=== PATIENT | female | born 1975 | race Two or more races ===

== ENCOUNTER 2024-11-30 09:39 | Emergency (ER) | payer OTHER ==
[~2024-11-30] VITALS: Ht 162.6 cm; Wt 76.8 kg
--- NOTE | 2024-11-30 09:55 | ED.PDOC ---
History of Present Illness HPI Comments 48Y F with PMHx pituitary tumor, prediabetes, CTS, and fibromyalgia presents to ED via EMS for chief complaint weakness x4days with n/v/d and bloating. Pt also reports chest pain only when coughing. VS with EMS: BP 121/86, HR 91, SpO2 95% on RA. No other symptoms reported. 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 Family History Family History: Unknown Social History Smoker: Non-Smoker Alcohol: Denies ETOH Use Drugs: Denies Drug Use Lives In: Home Constitutional: reports: weakness; denies: chills, diaphoresis, fatigue, fever, malaise, sweats, others EENTM: denies: blurred vision, double vision, ear bleeding, ear discharge, ear drainage, ear pain, ear ringing, eye pain, eye redness, hearing loss, mouth pain, mouth swelling, nasal discharge, nose bleeding, nose congestion, nose pain, photophobia, tearing, throat pain, throat swelling, voice changes, others Respiratory: denies: cough, hemoptysis, orthopnea, SOB at rest, shortness of breath, SOB with excertion, stridor, wheezing, others Cardiovascular: denies: chest pain, dizzy spells, diaphoresis, Dyspnea on exertion, edema, irregular heart beat, left arm pain, lightheadedness, palpitations, PND, syncope, others Gastrointestinal: reports: abdomen distended, diarrhea, nausea, vomiting; denies: abdominal pain, blood streaked bowels, constipated, dysphagia, di fficulty swallowing, hematemesis, melena, poor appetite, poor fluid intake, rectal bleeding, rectal pain, others Genitourinary: denies: abnormal vagina bleeding, burning, dyspareunia, dysuria, flank pain, frequency, hematuria, incontinence, pain, , vagina discharge, urgency, others Neurological: denies: dizziness, fainting, headache, left sided numbness, left sided weakness, numbness, paresthesia, pre-existing deficit, right sided numbness, right sided weakness, seizure, speech problems, tingling, tremors, weakness, others Musculoskeletal: denies: back pain, gout, joint pain, joint swelling, muscle pain, muscle stiffness, neck pain, others Integumetry: denies: bruises, change in color, change in hair/nails, dryness, laceration, lesions, lumps, rash, wounds, others Allergic/Immunocompromised: denies: Difficulty Healing, Frequent Infections, Hives, Itching, others Hematologic/Lymphatic: denies: anemia, blood clots, easy bleeding, easy bruising, swollen glands, others Endocrine: denies: excessive hunger, excessive sweating, excessive thirst, excessive urination, flushing, intolerance to cold, intolerance to heat, unexplained weight gain, unexplained weight loss, others Psychiatric: denies: anxiety, bipolar disorder, depression, hopeless, panic disorder, schizophrenia, sleepless, suicidal, others All Other Systems: Reviewed and Negative Physical Exam General Appearance: No Apparent Distress, Normal HEENT: Normal ENT Inspection, Pharynx Normal, TMs Normal Neck: Full Range of Motion, Non-Tender, Normal, Normal Inspection Respiratory: Chest Non-Tender, Lungs Clear, No Accessory Muscle Use, No R espiratory Distress, Normal Breath Sounds Cardiovascular: No Edema, No JVD, No Murmur, No Gallop, Normal Peripheral Pulses, Regular Rate/Rhythm, Other (chest wall tender on palpation) Breast Exam: Deferred Gastrointestinal: No Organomegaly, Non Tender, No Pulsatile Mass, Normal Bowel Sounds, Soft Genitalia: Deferred Pelvic: Deferred Rectal: Deferred Extremities: No calf tenderness, Normal capillary refill, Normal inspection, Normal range of motion, Non-tender, No pedal edema Musculoskeletal : Apperance: Normal Neurologic: Alert, dinkey locomotive operator II-XII nml as Tested, No Motor Deficits, Normal Affect, Normal Mood, No Sensory Deficits Cerebellar Function: Normal Reflexes: Normal Skin: Dry, Normal Color, Warm Lymphatic: No Adenopathy Was a procedure done? Was a procedure done?: No Differential Dx Considerations may include: electrolyte disorders, dehydration, , gastroenteritis, viral syndrome X-Ray, Labs, Meds, VS Vital Signs Date Time Temp Pulse Resp B/P (MAP) Pulse Ox O2 Delivery O2 Flow Rate FiO2 11/30/24 10:21 99.2 100 16 126/88 (101) 98 99.2 11/30/24 10:21 100 16 96 Room Air* 0 21 11/30/24 09:49 99.6 98 14 121/86 (98) 95 99.6 11/30/24 09:49 86 Lab Test 11/30/24 10:16 11/30/24 10:15 Range/Units White Blood Count 9.7 4.4-10.8 10^3/uL Red Blood Count 5.28 H 4.0-5.20 10^6/uL Hemoglobin 14.8 12.2-16.2 g/dL Hematocrit 44.1 36.0-46.0 % Mean Corpuscular Volume 83.6 80.0-100.0 fL Mean Corpuscular Hemoglobin 28.0 28.0-32.0 pg Mean Corpuscular Hemoglobin Concent 33.5 32.0-36.0 g/dL Red Cell Distribution Width 14.0 11.8-14.3 % Platelet Count 250 140-450 10^3/uL Mean Platelet Volume 8.8 6.9-10.8 fL Neutrophils (%) (Auto) 74.8 37.0-80.0 % Lymphocytes (%) (Auto) 15.0 10.0-50.0 % Monocytes (%) (Auto) 8.2 0.0-12.0 % Eosinophils (%) (Auto) 1.7 0.0-7.0 % Basophils (%) (Auto) 0.3 0.0-2.0 % Neutrophils # (Auto) 7.2 1.6-8.6 10 ^3/uL Lymphocytes # (Auto) 1.5 0.4-5.4 10 ^3/uL Monocytes # (Auto) 0.8 0-1.3 10 ^3/uL Eosinophils # (Auto) 0.2 0-0.8 10 ^3/uL Basophils # (Auto) 0 0-0.2 10 ^3/uL Nucleated Red Blood Cells 0.2 % Sodium Level 138 136-145 mmol/L Potassium Level 4.0 3.5-5.1 mmol/L Chloride Level 106 98-107 mmol/L Carbon Dioxide Level 24 20-31 mmol/L Anion Gap 8 5-15 Blood Urea Nitrogen 11 9-23 mg/dL Creatinine 0.69 0.550-1.02 mg/dL Glomerular Filtration Rate Calc 106 >90 mL/min BUN/Creatinine Ratio 15.9 10.0-20.0 Serum Glucose 128 H 74-106 mg/dL Calcium Level 9.9 8.7-10.4 mg/dL Total Bilirubin 0.5 0.2-1.0 mg/dL Aspartate Amino Transferase (AST) 23 13-40 U/L Alanine Aminotransferase (ALT) 34 7-40 U/L Alkaline Phosphatase 109 46-116 U/L Total Protein 8.2 5.7-8.2 g/dL Albumin 5.3 H 3.2-4.8 g/dL Urine Color Yellow Yellow Urine Clarity Turbid H Clear Urine pH 6.0 5.0-9.0 Urine Specific [place] 1.018 1.001-1.035 Urine Protein 2+ H Negative Urine Ketones Negative Negative Urine Blood Trace H Negative /uL Urine Nitrite Negative Negative Urine Bilirubin Negative Negative Urine Urobilinogen Normal Negative mg/dL Urine Leukocyte Esterase Negative Negative /uL Urine RBC 1 0 - 4 /hpf Urine Microscopic WBC 3 0-5 /HPF Urine Squamous Epithelial Cells Mod <5 /hpf Urine Bacteria None seen None Seen /hpf Urine Mucus Few None Seen Urine Glucose Normal Normal mg/dL Urine Test Negative Negative Current Medications Medications (Trade) Dose Ordered Sig/Risa Route Start Time Stop Time Status Last Admin Sodium Chloride 1,000 ml @ 1,000 mls/hr Q1H ONCE IV 11/30/24 10:00 11/30/24 10:59 DC 11/30/24 10:25 Ondansetron HCl (Zofran) 4 mg ONCE ONCE IV 11/30/24 10:00 11/30/24 10:01 DC 11/30/24 10:27 Loperamide HCl (Imodium Capsule) 2 mg ONCE ONCE PO 11/30/24 10:00 11/30/24 10:01 DC 11/30/24 10:24 Time of 1ST Reevaluation: 10:15 Reevaluation 1ST: Unchanged Time of 2ND Reevaluation: 11:17 Reevaluation 2ND: Resolved Patient Education/Counseling: Diagnosis, Treatment, Prognosis, Need For Follow Up Family Education/Counseling: No Family Present Additional Information Previous visit documents reviewed: None The following tests were ordered, and results were reviewed by me: CBC, CMP, UA, Urine test, EKG Additional Information was gathered from interviewing the following independent historians: EMS I reviewed and agreed with the following test results read by other providers: None I discussed treatment and results with medical personnel and: Patient Departure 1 Departure Time of Disposition: 11:18 Impression: Primary Impression: Nausea & vomiting Qualified Codes: R11.2 - Nausea with vomiting, unspecified Additional Impression: Diarrhea Qualified Codes: R19.7 - Diarrhea, unspecified Disposition: HOME / SELF CARE / HOMELESS Condition: Good e-Prescriptions Loperamide Hcl (Imodium) 2 Mg Cp 2 MG PO BID for 2 Days, #4 CAP 0 Refills Prov: OSCAR CURRAN MD 11/30/24 Ondansetron Odt 4MG Tab (ZOFRAN PO) 4 Mg Tb 4 MG PO Q4HP PRN for 2 Days, #10 TAB ODT TAB-DISSOLVE IN MOUTH, THEN SWALLOW Prov: OSCAR CURRAN MD 11/30/24 Discharged With: Self Critical Care Note Critical Care Time?: No Stability Stability form required: No Heart Score Heart Score: Heart Score Response (Comments) Value History Slightly Suspicious 0 EKG Normal 0 Age 45-64 1 Risk Factors No known risk factors 0 Troponin N/A 0 Total 1 I personally scribed for OSCAR CURRAN MD ([email or web address]) on 11/30/24 at 09:55. Electronically submitted by Carley Lentz ([email or web address]). OSCAR CURRAN MD Nov 30, 2024 09:55
[2024-11-30 10:16] LABS: Urine Bacteria None Seen /hpf (None Seen)
[2024-11-30 10:21] VITALS: PULSE 100; RESP 16; O2SAT 96
[2024-11-30] MEDS: LOPERAMIDE HCL 2 MG CAP/TAB PO ONE (10:24)
[2024-11-30] MEDS: SODIUM CHLORIDE 0.9% 1,000 ML IV ONE (10:25)
[2024-11-30] MEDS: ONDANSETRON HCL 4 MG/2 ML VIAL IV ONE (10:27)
[2024-11-30 10:28] LABS: Basophils # (auto) 0 10 ^3/uL (0-0.2); Basophils % (auto) 0.3 % (0.0-2.0); Eosinophils # (auto) 0.2 10 ^3/uL (0-0.8); Eosinophils % (auto) 1.7 % (0.0-7.0); Hematocrit 44.1 % (36.0-46.0); Hemoglobin 14.8 g/dL (12.2-16.2); Lymphocytes # (auto) 1.5 10 ^3/uL (0.4-5.4); Mean Corpuscular Hgb Conc. 33.5 g/dL (32.0-36.0); Mean Corpuscular Volume 83.6 fL (80.0-100.0); Monocytes # (auto) 0.8 10 ^3/uL (0-1.3); Monocytes % (auto) 8.2 % (0.0-12.0); Neutrophils # (auto) 7.2 10 ^3/uL (1.6-8.6); Neutrophils % (auto) 74.8 % (37.0-80.0); Nucleated Red Blood Cells % 0.2 %; Platelet Count (auto) 250 10^3/uL (140-450); Red Blood Cells 5.28 10^6/uL (4.0-5.20); White Blood Cell 9.7 10^3/uL (4.4-10.8)
[2024-11-30 10:31] LABS: Urine Blood TRACE /uL (Negative); Urine Clarity Turbid (Clear); Urine Color Yellow (Yellow); Urine Mucus FEW (None Seen); Urine Protein, UAD 2+ (Negative); Urine Specific Gravity 1.018 (1.001-1.035); Urine Squamous Epithelial Cell MOD /hpf (<5); Urine Urobilinogen Normal (Negative); Urine WBC 3 /HPF (0-5)
[2024-11-30 10:44] LABS: Alanine Aminotransferase 34 U/L (7-40); Alkaline Phosphatase 109 U/L (46-116); Anion Gap 8 (5-15); Aspartate Aminotransferase 23 U/L (13-40); BUN/Creatinine Ratio 15.9 (10.0-20.0); Bilirubin, Total 0.5 mg/dL (0.2-1.0); Blood Urea Nitrogen 11 mg/dL (9-23); Calcium 9.9 mg/dL (8.7-10.4); Carbon Dioxide 24 mmol/L (20-31); Chloride 106 mmol/L (98-107); Sodium 138 mmol/L (136-145)
[2024-11-30 10:45] LABS: Albumin 5.3 g/dL (3.2-4.8); Glucose 128 mg/dL (74-106); Total Protein 8.2 g/dL (5.7-8.2)
[2024-11-30] MEDS ORDERED: LOPE2CAP16 PO (11:20)
[2024-11-30] MEDS ORDERED: ZOFR4T PO (11:20)
[2024-11-30 11:30] VITALS: BP 114/71; PULSE 79; RESP 17; TEMP 98.7; O2SAT 98
--- NOTE | 2024-11-30 16:07 | ECG ---
[facility] Test Date: 2024-11-30 Test Time: 09:49:09 Pat Name: LEE HART Department: ED Room: Gender: F Real Estate Transaction Coordinator: DAT : 1975 Requested By: OSCAR CURRAN Order Number: [id number] Reading MD: Harvey Green Measurements Intervals [place] Rate: 86 P: 17 AR: 160 QRS: 40 QRSD: 84 T: 41 QT: 356 QTc: 426 Interpretive Statements Sinus rhythm Consider anterior infarct Electronically Signed On 12-01-2024 17:45:11 PDT by Harvey Green Please click the below link to view image of tracing.
== END 2024-11-30 11:32 | disposition home or self-care (01) ==
LOC: ER 09:39 → EDBD 09:39 → ER 11:31
DX: R19.7 Diarrhea, unspecified (principal); R11.2 Nausea with vomiting, unspecified; R14.0 Abdominal distension (gaseous); R53.1 Weakness; M79.7 Fibromyalgia
CPT/HCPCS: 36415; 80053; 81001; 81025; 85025; 93005; 96361; 96374; 99284; J2405; J7030